=== PATIENT | male | born 1965 | race Caucasian/White ===

== ENCOUNTER 2019-02-28 09:05 | Emergency (ER) | payer BC, MEDICARE ==
[2019-02-28] MEDS ORDERED: Ketorolac *IM* INJ* 60 MG/2 ML VIAL IM ONE (09:31)
--- NOTE | 2019-02-28 09:31 | UC ---
Truncal Trauma HPI - HPI Summary HPI Summary: 53 yo, slipped on ice yesterday falling directly onto his left side with immediate pain. He has had a difficult night, was most comfortable lying flat on his back. He has pain with breathing, and has had one dose of ibuprofen for control of pain. - History Of Current Complaint Chief Complaint: UCChestPain Stated Complaint: RIB INJURY Time Seen by Provider: 02/28/19 09:17 Hx Obtained From: Patient Onset/Duration: Sudden Onset, Lasting Days - 1 Onset Of Pain: Immediate Severity Initially: Moderate Severity Currently: Severe Pain Intensity: 8 Mechanism Of Injury: Blunt Trauma, Fall From A Standing Position Aggravating Factor(s): Movement, Deep Breathing, Cough Alleviating factor(s): Rest, Shallow Breathing Associated Signs And Symptoms: Positive: Chest Pain - Allergies/Home Medications Allergies/Adverse Reactions: Allergies Allergy/AdvReac Type Severity Reaction Status Date / Time erythromycin base Allergy GI Upset Verified 02/28/19 09:19 Penicillins Allergy Hives Verified 02/28/19 09:19 PMH/Surg Hx/FS Hx/Imm Hx Previously Healthy: Yes - Surgical History Surgical History: None - Family History Known Family History: Positive: Hypertension - mother - Social History Occupation: Employed Full-time Lives: With Family Alcohol Use: Daily Alcohol Amount: 3 gin/tonic Substance Use Type: None Smoking Status (MU): Never Smoked Tobacco Review of Systems All Other Systems Reviewed And Are Negative: Yes Constitutional: Positive: Negative Skin: Positive: Negative Eyes: Positive: Negative ENT: Positive: Negative Respiratory: Positive: Other - chest wall pain Cardiovascular: Positive: Chest Pain Gastrointestinal: Positive: Negative Genitourinary: Positive: Negative Motor: Positive: Negative Neurovascular: Positive: Negative Musculoskeletal: Positive: Other: - rib pain Neurological: Positive: Negative Psychological: Positive: Negative Is Patient Immunocompromised?: No Physical Exam Triage Information Reviewed: Yes Appearance: Well-Appearing, Pain Distress - moderate; declines to sit for fear of pain with movement. Vital Signs: Initial Vital Signs Temp 97.0 F 02/28/19 09:14 Pulse 95 02/28/19 09:14 Resp 16 02/28/19 09:14 BP 183/105 02/28/19 09:14 Pulse Ox 99 02/28/19 09:14 Eye Exam: Normal ENT: Positive: Pharynx normal Respiratory Exam: Other - No respiratory distress. Tender to palpation in the left lower rib cage in the mid axillary line. Respiratory: Positive: Decreased breath sounds - on the left side Cardiovascular: Positive: RRR, No Murmur Musculoskeletal Exam: Other - No tenderness with palpation of the cervical or thoracic vertebrae. Diagnostics - Radiology No standard instances Radiology Interpretation Completed By: Radiologist - Patient Name: FERCHO LYNCH Medical Record#: [id number] Ordering Physician: Roseanne Ortega MD Acct.#: [id number] : 1965 Age: 53 Sex: M Location: [facility] Exam Date: 02/28/19930 ADM Status: REG ER Order Information: RIBS LT UNI W/ PA CH MIN 3 VWS Accession Number: [id number] CPT: 12836 HISTORY: painful left lateral ribs post fall COMPARISONS: None relevant available at the time of dictation. VIEWS : 7, Frontal view of the chest with frontal and oblique views of the left hemithorax FINDINGS: There is a minimally displaced fracture of the lateral aspect of the left seventh rib. There is no appreciable pneumothorax. IMPRESSION: LEFT SEVENTH RIB FRACTURE WITHOUT APPRECIABLE PNEUMOTHORAX. <Electronically signed by Justino Rojas MD in OV> 02/28/19952 Dictated By: Justino Rojas MD Dictated Date/Time: 02/28/19951 Transcribed Date/Time: 02/28/19951 Copy to: CC:Roseanne Ortega MD; No Primary Care Phys,NOPCP Imaging - [facility] [address] [place] [address] ph ([phone]) ph ([phone]) ph ([phone]) This report is only to be considered final once signed by the Provider(s) as displayed in the "<Electronically Signed by >" field (s). Absence of a signature indicates the report is in a draft status and still needs to be finalized. In the event this document was created by someone other than the signing Provider, the individual initiating the document will be listed in the "Entered by:" or "Dictated by:" ulloa. 1 of 1 Truncal Trauma Course/Dx - Course Course Of Treatment: pain control for left 7th rib fracture, minimally displaced. - Differential Dx/Diagnosis Differential Diagnosis/HQI/PQRI: Chest Wall Contusion, Rib Fracture Provider Diagnosis: Left rib fracture Discharge ED - Sign-Out/Discharge Documenting (check all that apply): Patient Departure All imaging exams completed and their final reports reviewed: Yes - Discharge Plan Condition: Stable Disposition: HOME Prescriptions: Cyclobenzaprine TAB* [Flexeril 10 MG TAB*] 10 mg PO BID PRN #20 tab PRN Reason: Spasms - Muscle Hydrocodone/Acetaminophen [Hydrocodone/Acetaminophen 5-325 mg] 2 tab PO Q8H PRN #12 tab MDD 6 PRN Reason: Pain - Severe Naproxen [Naproxen 500 mg tab] 500 mg PO BID PRN #50 tablet PRN Reason: Pain - Moderate Patient Education Materials: Rib Fracture (ED) Referrals: No Primary Care Phys,NOPCP [Primary Care Provider] - Additional Instructions: Initial blood pressure reading was 183/105, second reading of 169/100. Please ensure that you have a recheck of blood pressure in the next several weeks. For control of pain: -Regular use of naproxen as an anti-inflammatory for at least a week, taking it with food and stopping if you develop stomach upset or heartburn. -You can use additional acetaminophen up to 3000mg per day. -Flexeril can be used a a muscle relaxant. This does cause sedation, and might be most helpful before bed. -You have a prescription for hydrocodone with acetaminophen, which you can use for severe pain (each tablet has 325mg of acetaminophen which adds to the total dose for the day.) Please establish care with a primary physician (Plan is to try [facility] medicine.). - Billing Disposition and Condition Condition: STABLE Disposition: Home
[2019-02-28 10:19] VITALS: BP 163/109
== END 2019-02-28 10:32 | disposition home or self-care (01) ==
LOC: UCEAST 09:05
DX: S22.32XA Fracture of one rib, left side, initial encounter for closed fracture (principal); Z88.0 Allergy status to penicillin; Z88.1 Allergy status to other antibiotic agents; X58.XXXA Exposure to other specified factors, initial encounter; Y92.9 Unspecified place or not applicable
CPT/HCPCS: 96372; 99212; G0463; J1885